=== PATIENT | female | born 1985 | race African-American/Black ===

== ENCOUNTER 2022-02-25 08:53 | Inpatient (IN) ==
[2022-02-25] MEDS ORDERED: ACETAMINOPHEN 500 MG TABLET PO ONE (15:53)
[2022-02-25] MEDS: BETAMETH SODIUM PHOS/ACETATE 30 MG/5 ML VIAL IM SCH (18:43)
[2022-02-26] MEDS ORDERED: OXYTOCIN/LR 20 UNIT/1,000 ML BAG IV ONE ×2 (00:11→11:00)
[2022-02-26] MEDS ORDERED: TRANEXAMIC ACID 1,000 MG in SODIUM CHLORIDE 0.9% 100 ML IV PRN (00:11)
[2022-02-26] MEDS ORDERED: FAMOTIDINE 20 MG/2 ML VIAL IV ONE ×2 (00:11→09:00)
[2022-02-26] MEDS ORDERED: miSOPROStoL 200 MCG TABLET RECTAL PRN (00:11)
[2022-02-26] MEDS ORDERED: CITRIC ACID/SODIUM CITRATE 30 ML UDCUP PO ONE ×2 (00:11→09:00)
[2022-02-26] MEDS ORDERED: CARBOPROST TROMETHAMINE 250 MCG/ML AMP IM PRN (00:11)
[2022-02-26] MEDS ORDERED: METHYLERGONOVINE 0.2 MG/1 ML AMP IM PRN (00:11)
[2022-02-26] MEDS ORDERED: LACTATED RINGERS 1,000 ML IV SCH ×2 (00:30→11:00)
[2022-02-26 00:45] LABS: Eosinophils % 0.2 % (0.00-10.9); Hematocrit 38.8 VOL% (35.7-47.0); Hemoglobin 12.1 GM/DL (12.0-16.0); Immature Granulocytes % 0.3 %; Immature Granulocytes Absolute 0.02 #; Lymphocytes # 1.1 10*3/uL (1.4-4.0); Lymphocytes % 17.7 % (21.3-54.2); Mean Corpuscular HGB Conc 31.2 GM/DL (32-36); Mean Corpuscular Volume 75.9 FL (87-102); Mean Platelet Volume 11.7 FL (9.6-12.0); Monocytes # 0.2 10*3/uL (0.11-0.8); Monocytes % 2.6 % (1.7-12.7); Neutrophils % 79.2 % (38.7-73.9); Platelet Count 229 T/CUMM (130-400); Red Blood Count 5.11 MC/CUMM (3.8-5.5); Red Cell Distribution Width 14.1 % (9.3-17.3); White Blood Count 6.2 T/CUMM (4-12)
[2022-02-26 01:01] LABS: Alanine Aminotransferase 25 U/L (13-56); Albumin 2.8 G/DL (3.4-5.0); Alkaline Phosphatase 196 U/L (45-117); Aspartate Amino Transferase 23 U/L (0-37); Bilirubin,Total < 0.39 MG/DL (0.20-1.00); Blood Urea Nitrogen 6 MG/DL (7-18); Calcium 9.5 MG/DL (8.5-10.1); Carbon Dioxide 20 MMOL/L (21-32); Chloride 110 MMOL/L (98-107); Glucose 123 MG/DL (74-106); Osmolality,Calculated 271.8 MOS/KG (273-304); Potassium 4.3 MMOL/L (3.5-5.1); Sodium 137 MMOL/L (136-145); Total Protein 7.7 G/DL (6.4-8.2)
[2022-02-26] MEDS: BETAMETH SODIUM PHOS/ACETATE 30 MG/5 ML VIAL IM SCH (06:17)
[2022-02-26 06:23] LABS: INR 0.9; PT Patient Result 10.2 SECS (10.5-12.0); Partial Thromboplastin Time 27.4 SECS (23.8-32.1)
[2022-02-26] MEDS ORDERED: OXYTOCIN 10 UNIT/ML VIAL IM ONE (07:00)
[2022-02-26] MEDS ORDERED: OXYTOCIN/LR 30 UNIT/1,000 ML BAG IV ONE (07:00)
[2022-02-26] MEDS ORDERED: BUPIVACAINE SPINAL 0.75% 2 ML AMP SPINAL ONE (09:06)
[2022-02-26] MEDS ORDERED: buprenorphine HCL 0.3 MG/ML VIAL ONE (09:06)
[2022-02-26] MEDS ORDERED: ONDANSETRON 4 MG/2 ML VIAL ONE (09:06)
[2022-02-26] MEDS ORDERED: KETOROLAC 30 MG/1 ML VIAL ONE (09:06)
[2022-02-26] MEDS ORDERED: PHENYLEPHRINE 1 MG/10 ML SYRINGE IV ONE ×2 (09:43→10:10)
[2022-02-26 10:08] LABS: Cord Arterial Blood HCO3 19.6 MMOL/L
[2022-02-26 10:12] LABS: Cord Venous Blood HCO3 20.2 MMOL/L; Cord Venous Blood PCO2 52.8 MMHG; Cord Venous Blood PO2 19.9
[2022-02-26 10:14] LABS: Bacteria,Urine Occasional /HPF (Few); Mucus,Urine Few /LPF (Occasional); RBC,Urine 1 /HPF (0-4); Squamous Epithelial Cell,Urine Occasional /HPF (0-10)
[2022-02-26 10:15] LABS: Protein,Urine 30 mg/dL (Negative); Urine Appearance Clear (Clear); Urine Color Yellow (Yellow); Urine Specific Gravity > 1.030 (1.001-1.035); Urine pH 5.5 (4.5-8.0)
[2022-02-26 10:16] LABS: Bilirubin,Urine Negative (Negative); Blood, Urine Negative (Negative); Glucose,Urine (UA) Negative (Negative); Ketones,Urine >160 mg/dL (Negative); Nitrite,Urine Negative (Negative); Urine Urobilinogen 0.2 eU/dL (<2.0)
[2022-02-26] MEDS ORDERED: ACETAMINOPHEN 325 MG TABLET PO PRN (10:30)
[2022-02-26] MEDS ORDERED: ONDANSETRON 4 MG/2 ML VIAL IV PRN (10:30)
[2022-02-26] MEDS ORDERED: diphenhydrAMINE 50 MG/1 ML VIAL IV PRN (10:48)
[2022-02-26] MEDS ORDERED: hydrOXYzine HCL 25 MG/1 ML VIAL IM PRN (10:48)
[2022-02-26] MEDS ORDERED: HYDROmorphone 1 MG/1 ML SYRINGE IV PRN (10:48)
[2022-02-26] MEDS ORDERED: RHO(D) IMMUNE GLOBULIN 300 MCG SYRINGE IM ONE (11:00)
[2022-02-26] MEDS ORDERED: NIFEdipine 10 MG CAPSULE PO PRN (14:09)
[2022-02-26] MEDS ORDERED: ceFAZolin 2,000 MG in SODIUM CHLORIDE 0.9% 100 ML IV SCH (16:30)
[2022-02-26] MEDS: KETOROLAC 30 MG/1 ML VIAL IV SCH ×2 (16:37→23:29)
[2022-02-26] MEDS: ACETAMINOPHEN 500 MG TABLET PO SCH ×2 (16:45→23:30)
[2022-02-26 17:16] LABS: Basophils % 0.1 % (0.0-0.8); Hematocrit 32.9 VOL% (35.7-47.0); Hemoglobin 10.2 GM/DL (12.0-16.0); Immature Granulocytes % 0.5 %; Immature Granulocytes Absolute 0.07 #; Lymphocytes % 7.2 % (21.3-54.2); Mean Corpuscular Volume 76.2 FL (87-102); Mean Platelet Volume 11.6 FL (9.6-12.0); Monocytes # 0.7 10*3/uL (0.11-0.8); Neutrophils % 87.2 % (38.7-73.9); Platelet Count 201 T/CUMM (130-400); Red Blood Count 4.32 MC/CUMM (3.8-5.5); Red Cell Distribution Width 14.3 % (9.3-17.3); White Blood Count 13.4 T/CUMM (4-12)
[2022-02-26] MEDS: DOCUSATE SODIUM 100 MG CAPSULE PO SCH (21:30)
[2022-02-27] MEDS ORDERED: ceFAZolin 2,000 MG/50 ML DUPLEX IV ONE (01:00)
[2022-02-27 05:02] LABS: Basophils % 0.1 % (0.0-0.8); Hematocrit 29.9 VOL% (35.7-47.0); Hemoglobin 9.3 GM/DL (12.0-16.0); Immature Granulocytes % 0.4 %; Immature Granulocytes Absolute 0.05 #; Lymphocytes # 1.1 10*3/uL (1.4-4.0); Lymphocytes % 9.3 % (21.3-54.2); Mean Corpuscular HGB Conc 31.1 GM/DL (32-36); Mean Corpuscular Volume 75.3 FL (87-102); Mean Platelet Volume 12.5 FL (9.6-12.0); Monocytes # 0.7 10*3/uL (0.11-0.8); Monocytes % 5.9 % (1.7-12.7); Neutrophils % 84.3 % (38.7-73.9); Platelet Count 186 T/CUMM (130-400); Red Blood Count 3.97 MC/CUMM (3.8-5.5); Red Cell Distribution Width 14.3 % (9.3-17.3); White Blood Count 12.1 T/CUMM (4-12)
[2022-02-27] MEDS: ACETAMINOPHEN 500 MG TABLET PO SCH ×2 (05:39→10:10)
[2022-02-27] MEDS: KETOROLAC 30 MG/1 ML VIAL IV SCH (05:39)
[2022-02-27] MEDS: MAGNESIUM HYDROXIDE SUSP 30 ML UDCUP PO PRN (08:40)
[2022-02-27] MEDS: METOCLOPRAMIDE 10 MG TABLET PO SCH ×2 (08:40→16:07)
[2022-02-27] MEDS: MULTIVITAMIN (PRENATAL) TABLET PO SCH (08:41)
[2022-02-27] MEDS: DOCUSATE SODIUM 100 MG CAPSULE PO SCH ×2 (08:42→21:25)
[2022-02-27] MEDS: SIMETHICONE CHEW 80 MG TABLET PO PRN ×2 (11:52→21:09)
[2022-02-27] MEDS: IBUPROFEN 800 MG TABLET PO PRN ×2 (13:23→19:30)
[2022-02-28] MEDS: METOCLOPRAMIDE 10 MG TABLET PO SCH ×2 (00:07→09:00)
[2022-02-28] MEDS: MAGNESIUM HYDROXIDE SUSP 30 ML UDCUP PO PRN (04:27)
[2022-02-28] MEDS: IBUPROFEN 800 MG TABLET PO PRN (05:23)
[2022-02-28] MEDS ORDERED: BISACODYL 10 MG SUPP RECTAL PRN (07:06)
[2022-02-28 07:15] VITALS: BP 127/78
[2022-02-28] MEDS: MULTIVITAMIN (PRENATAL) TABLET PO SCH (09:16)
[2022-02-28] MEDS: DOCUSATE SODIUM 100 MG CAPSULE PO SCH (09:17)
[2022-02-28] MEDS ORDERED: WITCH HAZEL PADS 100/JAR TOP PRN (09:39)
[2022-02-28] MEDS ORDERED: HYDROCORTISONE 2.5% RECTAL CREAM 30 GM TUBE TOP PRN (09:41)
== END 2022-02-28 10:50 | disposition home or self-care (01) | DRG 784 ==
LOC: N.LDOUT 08:53 → N.LD 08:54 → N.OB 02-26 16:24
PROVIDERS: ADMIT Obstetrics & Gynecology; ATTEND Obstetrics & Gynecology